=== PATIENT | male | born 1955 | race Caucasian/White ===

== ENCOUNTER 2025-03-14 15:06 | Outpatient (CLI) | payer MEDICARE, OTHER ==
--- NOTE | 2025-03-14 21:52 | RADIOLOGY REPORT ---
Procedure: MR MRI UPPER EXTREMITY LEFT 03/14/2025 03:28 PM INDICATION: STRAIN OF MUSC/TEND THE ROTATOR CUFF OF LEFT SHOULDER, INIT COMPARISON: None TECHNIQUE: Multiplanar, multisequence MRI of the left shoulder was performed. FINDINGS: Supraspinatus: Full-thickness, full width insertional tear with 4.6 cm tendon retraction and severe fatty muscle atrophy. Evidence of prior tendon repair. Infraspinatus: The tendon is intact. Evidence of prior tendon repair. Severe fatty muscle atrophy n oted. Subscapularis: Moderate tendinosis with severe thinning of the tendon reflecting chronic partial-thi ckness tear without tendon retraction or significant muscle atrophy. Teres minor: Normal in morphology and signal. Biceps tendon: Long head biceps tendon is not identified. Short head biceps tendon is intact. Subacromial bursa: Mild fluid distention. Subcoracoid bursa: Mild fluid distention. Acromioclavicular joint: Degenerative hypertrophy. Type II acromion. Glenohumeral joint: Unremarkable. Glenoid labrum: Diffuse labral abnormality with evidence of superior, posterior anterior labral tear s. Bones: No suspicious lesion is identified. Other: Unremarkable. IMPRESSION: 1. Recurrent full-thickness, full width insertional supraspinatus tendon tear with 4.6 cm tendon retr action severe fatty muscle atrophy. 2. The infraspinatus tendon is intact. Evidence of prior tendon repair. Severe fatty muscle atrophy . 3. Chronic high-grade partial subscapularis tendon tear without tendon retraction or muscle atrophy. 4. Long head biceps tendon is not identified and probably torn and retracted. 5. Diffuse abnormality of the glenoid labrum. 6. Moderate degenerative hypertrophy of the acromioclavicular joint with evidence of rotator cuff imp ingement.
== END 2025-03-14 23:59 | disposition home or self-care (01) ==
LOC: MRI02 15:06
PROVIDERS: ATTEND Orthopaedic Surgery
DX: S46.012A Strain of muscle(s) and tendon(s) of the rotator cuff of left shoulder, initial encounter (principal); S43.432A Superior glenoid labrum lesion of left shoulder, initial encounter; M89.312 Hypertrophy of bone, left shoulder; M19.012 Primary osteoarthritis, left shoulder; M75.42 Impingement syndrome of left shoulder; M75.102 Unspecified rotator cuff tear or rupture of left shoulder, not specified as traumatic; X58.XXXA Exposure to other specified factors, initial encounter; Y93.89 Activity, other specified; Y92.89 Other specified places as the place of occurrence of the external cause; Y99.8 Other external cause status
CPT/HCPCS: 73221